=== PATIENT | male | born 1945 | race Caucasian/White ===

== ENCOUNTER 2018-02-09 06:30 | Emergency (ER) | payer MEDICARE ==
[~2018-02-09] VITALS: Ht 182.9 cm; Wt 104.3 kg
[~2018-02-09 06:30] MED LIST: ASPI325 PO; ASPI81EC PO; ATOR40TA PO; CARV3.125 PO; CARV6.25 PO; CLOP75 PO; COLCRYS0.6 MG PO; Coq-10100 MG PO; EFFIENT PO; FAMO20 PO; GLUC500 PO; Hair, Skin & N1 EACH PO; ISOMON30 PO; LEVSOD125 PO; LEVSOD75 PO; OMEG1CAP30 PO; Phenergan25 M1 PO; RAMI5 PO; SUCR1 PO; Viagra100 MG PO
[2018-02-09 08:31] LABS: BASOPHILS ABSOLUTE AUTO 0.03 K/mm3 (0.00-0.23); BASOPHILS PERCENT AUTO 0 % (0-2); EOSINOPHILS ABSOLUTE AUTO 0.33 K/mm3 (0.00-0.68); EOSINOPHILS PERCENT AUTO 5 % (0-6); Hematocrit 41.9 % (37.0-53.0); Hemoglobin 13.8 g/dL (13.5-17.5); IMMATURE GRAN ABSOLUTE AUTO 0.05 K/mm3 (0.00-0.10); IMMATURE GRAN PERCENT AUTO 1 % (0-1); LYMPHOCYTES ABSOLUTE AUTO 1.55 K/mm3 (0.84-5.20); LYMPHOCYTES PERCENT AUTO 21 % (21-46); MONOCYTES ABSOLUTE AUTO 0.69 K/mm3 (0.16-1.47); MONOCYTES PERCENT AUTO 9 % (4-13); Mean Corpuscular HGB 30.5 pg (26.0-34.0); Mean Corpuscular HGB Conc 32.9 g/dL (31.5-36.5); Mean Corpuscular Volume 93 fL (80-100); Mean Platelet Volume 11.4 fL (9.1-12.4); NEUTROPHILS ABSOLUTE AUTO 4.66 K/mm3 (1.96-9.15); NEUTROPHILS PERCENT AUTO 64 % (41-73); Platelet Count 181 K/mm3 (150-400); RDW Coefficient Variation 12.8 % (11.7-14.2); RDW Standard Deviation 43.5 fL (35.1-46.3); Red Blood Cell Count 4.53 M/mm3 (4.30-5.90); White Blood Cell Count 7.31 K/mm3 (4.00-11.30)
[2018-02-09 08:51] LABS: Alanine Aminotransfer (ALT/SGP 46 U/L (12-78); Albumin, Blood 3.2 g/dL (3.4-5.0); Albumin/Globulin Ratio 0.9 (0.8-1.8); Alk Phos 85 U/L (50-136); Anion Gap 7 mmol/L (6-16); Aspartate Aminotrans (AST/SGOT 29 U/L (12-37); Bilirubin, Total 0.3 mg/dL (0.1-1.0); Blood Urea Nitrogen 14 mg/dL (8-24); Bun/Creatinine Ratio 15.4 (12.0-20.0); CO2, Blood 25 mmol/L (21-32); Calcium, Blood 8.4 mg/dL (8.5-10.1); Chloride, Blood 108 mmol/L (98-108); Creatinine, Blood 0.91 mg/dL (0.60-1.20); Globulin, Blood 3.4 g/dL (2.2-4.0); Glomerular Filtration Rate >60 (60-); Glucose, Blood 142 mg/dL (70-99); Potassium, Blood 4.2 mmol/L (3.5-5.5); Sodium, Blood 140 mmol/L (136-145); Total Protein, Blood 6.6 g/dL (6.4-8.2)
== END 2018-02-09 09:33 | disposition home or self-care (01) ==
LOC: ER 06:30
PROVIDERS: Physician Assistant
DX: R07.81 Pleurodynia (principal); R05 Cough; I25.2 Old myocardial infarction; E03.9 Hypothyroidism, unspecified; I10 Essential (primary) hypertension; Z79.899 Other long term (current) drug therapy
CPT/HCPCS: 36415; 71046; 76705; 80053; 83690; 84484; 85025; 93005; 93010; 99284-25

== ENCOUNTER → 2021-05-27 | Outpatient (CLI) | payer MEDICARE ==
[2021-05-28 20:17] LABS: Adenovirus F 40/41 Not Detected (NOT DETECT); Astrovirus Not Detected (NOT DETECT); Campylobacter Sp Not Detected (NOT DETECT); Cryptosporidium Not Detected (NOT DETECT); Cyclospora Cayetanensis Not Detected (NOT DETECT); E. Coli O157 Not Detected (NOT DETECT); Entamoeba Histolytica Not Detected (NOT DETECT); Enteroaggregative E. coli-EAEC Not Detected (NOT DETECT); Enteropathogenic E. coli-EPEC Not Detected (NOT DETECT); Enterotoxigenic E. coli-ETEC Not Detected (NOT DETECT); Giardia Lamblia Not Detected (NOT DETECT); Norovirus GI/GII Not Detected (NOT DETECT); Plesiomonas Shigelloides Not Detected (NOT DETECT); Rotavirus A Not Detected (NOT DETECT); Salmonella Sp Not Detected (NOT DETECT); Sapovirus Not Detected (NOT DETECT); Shiga Toxin-prod E. coli-STEC Not Detected (NOT DETECT); Shigella/Enteroin E. coli-EIEC Not Detected (NOT DETECT); Vibrio Cholerae Not Detected (NOT DETECT); Vibrio Sp Not Detected (NOT DETECT); Yersinia Enterocolitica Not Detected (NOT DETECT)
== END | disposition home or self-care (01) ==
LOC: LAB SHORT 19:55 → LAB 19:55 → LAB FUT 05-27 14:00 → EDSTATUS 05-27 14:00
PROVIDERS: Internal Medicine
DX: R19.7 Diarrhea, unspecified (principal)
CPT/HCPCS: 87507

== ENCOUNTER → 2021-07-01 | Outpatient (CLI) | payer MEDICARE ==
[2021-07-03 08:24] LABS: Stool Occult Bld Immuno 1 Positive (NEGATIVE); Stool Occult Bld Immuno 2 Positive (NEGATIVE)
== END | disposition home or self-care (01) ==
LOC: LAB SHORT 11:25
PROVIDERS: Internal Medicine Gastroenterology
DX: Z12.11 Encounter for screening for malignant neoplasm of colon (principal)
CPT/HCPCS: 82274

== ENCOUNTER 2021-08-02 10:54 | Day surgery (SDC) | payer MEDICARE ==
[~2021-08-02] VITALS: Ht 185.4 cm; Wt 97.8 kg
== END 2021-08-02 13:30 | disposition home or self-care (01) ==
LOC: ORSCSDS 10:54
PROVIDERS: Internal Medicine Gastroenterology
PROC: 0DB68ZX Excision of Stomach, Via Natural or Artificial Opening Endoscopic, Diagnostic (ICD-10-PCS; principal; 2021-08-02 12:45)
PROC: 0DB48ZX Excision of Esophagogastric Junction, Via Natural or Artificial Opening Endoscopic, Diagnostic (ICD-10-PCS; principal; 2021-08-02 12:45)
PROC: 0DBE8ZX Excision of Large Intestine, Via Natural or Artificial Opening Endoscopic, Diagnostic (ICD-10-PCS; 2021-08-02 12:45)
DX: R19.5 Other fecal abnormalities (principal); K57.30 Diverticulosis of large intestine without perforation or abscess without bleeding; K29.70 Gastritis, unspecified, without bleeding; E11.9 Type 2 diabetes mellitus without complications; E66.9 Obesity, unspecified; Z68.30 Body mass index [BMI] 30.0-30.9, adult; Z79.82 Long term (current) use of aspirin; Z79.899 Other long term (current) drug therapy
CPT/HCPCS: 82947; 88305; 88341; 88342; J0330; J0461; J2405; J2704; J7120

== ENCOUNTER → 2021-10-05 | Outpatient (CLI) | payer MEDICARE ==
[2021-10-06 13:00] LABS: Stool Occult Bld Immuno 1 Positive (NEGATIVE)
== END | disposition home or self-care (01) ==
LOC: LAB 09:40 → LAB SHORT 09:40
PROVIDERS: Internal Medicine Gastroenterology
DX: R19.5 Other fecal abnormalities (principal)
CPT/HCPCS: 82274

== ENCOUNTER 2022-01-04 06:00 | Day surgery (SDC) | payer MEDICARE ==
[~2022-01-04 06:00] MED LIST changes: +CO Q10100 MG PO; +MULVITA PO; +NITR.4SL SL
[2022-01-04] MEDS ORDERED: RAMI5 PO (06:34)
== END 2022-01-04 10:18 | disposition home or self-care (01) ==
DX: K42.0 Umbilical hernia with obstruction, without gangrene (principal); I10 Essential (primary) hypertension; I25.2 Old myocardial infarction; R73.03 Prediabetes; K21.9 Gastro-esophageal reflux disease without esophagitis; Z79.899 Other long term (current) drug therapy; Z79.82 Long term (current) use of aspirin

== ENCOUNTER → 2022-06-28 | Outpatient (CLI) | payer MEDICARE | LOC: LAB 18:50 → LAB SHORT 18:50 | PROVIDERS: Internal Medicine Gastroenterology | DX: R19.4 Change in bowel habit (principal) | CPT/HCPCS: 82710 ==

== ENCOUNTER → 2022-07-01 | Outpatient (CLI) | payer MEDICARE ==
[2022-07-01 16:34] LABS: BASOPHILS ABSOLUTE AUTO 0.04 K/mm3 (0.00-0.23); BASOPHILS PERCENT AUTO 1 % (0-2); EOSINOPHILS ABSOLUTE AUTO 0.22 K/mm3 (0.00-0.68); EOSINOPHILS PERCENT AUTO 3 % (0-6); Hematocrit 39.6 % (37.0-53.0); Hemoglobin 13.2 g/dL (13.5-17.5); IMMATURE GRAN ABSOLUTE AUTO 0.03 K/mm3 (0.00-0.10); IMMATURE GRAN PERCENT AUTO 1 % (0-1); LYMPHOCYTES ABSOLUTE AUTO 1.63 K/mm3 (0.84-5.20); LYMPHOCYTES PERCENT AUTO 25 % (21-46); MONOCYTES ABSOLUTE AUTO 0.53 K/mm3 (0.16-1.47); MONOCYTES PERCENT AUTO 8 % (4-13); Mean Corpuscular HGB 30.8 pg (26.0-34.0); Mean Corpuscular HGB Conc 33.3 g/dL (31.5-36.5); Mean Corpuscular Volume 92 fL (80-100); Mean Platelet Volume 11.2 fL (9.1-12.4); NEUTROPHILS ABSOLUTE AUTO 4.21 K/mm3 (1.96-9.15); NEUTROPHILS PERCENT AUTO 63 % (41-73); Platelet Count 175 K/mm3 (150-400); RDW Coefficient Variation 13.6 % (11.7-14.2); RDW Standard Deviation 45.8 fL (35.1-46.3); Red Blood Cell Count 4.29 M/mm3 (4.30-5.90); White Blood Cell Count 6.66 K/mm3 (4.00-11.30)
[2022-07-01 16:41] LABS: Bun/Creatinine Ratio 13.6 (12.0-20.0); Calcium, Blood 8.7 mg/dL (8.5-10.1); Creatinine, Blood 1.03 mg/dL (0.60-1.20); Potassium, Blood 3.7 mmol/L (3.5-5.5)
== END | disposition home or self-care (01) ==
LOC: LAB SHORT 16:24 → LAB 16:24
PROVIDERS: Physician Assistant Surgical
DX: M79.89 Other specified soft tissue disorders (principal)
CPT/HCPCS: 80048; 83880; 85025

== ENCOUNTER 2024-03-12 08:28 | Day surgery (SDC) | payer MEDICARE ==
[~2024-03-12] VITALS: Ht 182.9 cm; Wt 100.9 kg
[2024-03-12] VITALS (13 sets, daily range): BP systolic 125–145; BP diastolic 56–76
[~2024-03-12 08:28] MED LIST changes: +ASPI81CH PO; -ASPI81EC PO; +CALCIUM 500+D1 EACH PO; +FURO20 PO; +SPIR50 PO; +VITAMIN B12500 MCG PO
[2024-03-12] MEDS ORDERED: Tranexamic Acid 1,000 MG in NS 100 ML IV SCH (08:40)
[2024-03-12] MEDS ORDERED: Ropivacaine 0.5% HCl/Pf 123.125 MG,EPINEPHrine HCL 0.25 MG,Ketorolac Tromethamine 15 MG... INFIL SCH (08:40)
[2024-03-12] MEDS ORDERED: OxyCODONE HCL 10 MG TABCR PO SCH (08:40)
[2024-03-12] MEDS ORDERED: Lactated Ringer's 1,000 ML IV SCH ×2 (08:40→10:50)
[2024-03-12] MEDS ORDERED: CeFAZolin Sodium 2,000 MG in NS 100 ML IV SCH ×2 (08:40→19:00)
[2024-03-12] MEDS ORDERED: Chlorhexidine Mouth Care 15 ML UDC MT SCH (08:40)
[2024-03-12] MEDS ORDERED: Acetaminophen 500 MG Tab PO SCH ×2 (08:40→16:00)
[2024-03-12] MEDS ORDERED: FentaNYL Citrate 50 MCG/ML 2 ML Injection ONE (09:41)
[2024-03-12] MEDS ORDERED: propofoL 20 ML IV ONE ×3 (10:00→12:28)
[2024-03-12] MEDS ORDERED: Dexamethasone Sod Phos 10 MG/ML 1ML VIAL ONE (10:01)
[2024-03-12] MEDS ORDERED: Ondansetron HCl 2 MG / ML 2ML Vial ONE (10:01)
[2024-03-12] MEDS ORDERED: Ketorolac Tromethamine 30mg Vial ONE (10:01)
[2024-03-12] MEDS ORDERED: Bupivacaine 0.5% HCl 5 MG/ML 30MLVIAL ONE (10:03)
[2024-03-12] MEDS ORDERED: DiphenhydrAMINE HCL 25 MG Cap PO PRN (10:45)
[2024-03-12] MEDS ORDERED: Metoclopramide HCl 5MG / ML 2ML Vial IV PRN (10:50)
[2024-03-12] MEDS ORDERED: HYDROmorphone HCl/Pf 1MG SYR IV PRN (10:50)
[2024-03-12] MEDS ORDERED: FLU VACC TS2024-25(6MOS UP)/PF 45 MCG/0.5 ML SYRINGE IM SCH (10:50)
[2024-03-12] MEDS ORDERED: Bisacodyl 10 MG Supp PR PRN (10:50)
[2024-03-12] MEDS ORDERED: Magnesium Hydroxide Conc 10 ML UDC PO PRN (10:50)
[2024-03-12] MEDS ORDERED: OxyCODONE HCL 5 MG TAB PO PRN ×2 (10:55)
[2024-03-12] MEDS ORDERED: Ondansetron HCl 2 MG / ML 2ML Vial IV PRN (10:55)
[2024-03-12] MEDS ORDERED: Promethazine HCl 25 MG Tab PO PRN (10:55)
--- NOTE | 2024-03-12 11:06 | NUR ---
Ambulatory in Day Surgery. History, Chart, Medications and Allergies reviewed before start of procedure. Lungs clear T/O to Auscultation. Patient confirms NPO status and agrees with scheduled surgery. Pre-Op teaching done. Pt verbalizes understanding. PT BELONGINGS PLACED UNDERNEATH GURNEY FOR SAFEKEEPING. PT GLASSES TAKEN TO PACU FOR SAFEKEEPING.
[2024-03-12] MEDS ORDERED: ePHEDrine Sulfate 50 MG/ML 1ML Injection ONE (11:27)
[2024-03-12] MEDS ORDERED: Ketorolac Tromethamine 15mg Vial IV SCH (12:00)
--- NOTE | 2024-03-12 14:00 | NUR ---
POST OP NOTE PT TO ROOM 215 FROM PACU. PT SETTLED BY CHARGE NURSE. IS ALERT, RESPONSIVE, FOLLOWING COMMANDS. DENIES PAIN AND NAUSEA. SOME NUMBNESS FROM SPINAL. PT TOLERATING PO FLUIDS. CHARY CARRILLO, POLAR PACK INTACT. CALL LIGHT IN REACH.
--- NOTE | 2024-03-12 16:22 | NUR ---
SHIFT SUMMARY PT IS PODO FOR L TKA W/ DR. WISEMAN. ALERT, RESPONSIVE, FOLLOWING COMMANDS. DRESSING TO L KNEE C/D/I, CAP REFILL 2 SECS, PT REPORTING FULL SENSATION RETURNED AFTER SPINAL. 1 ASST W/ FWW AND GB TO BATHROOM. PT HAS VOIDED POST OP. PAS, CHARY HOSE, POLAR ELISABETH IN PLACE. VSS. PT TOLERATING PO FLUIDS AND REG FOOD W/O NAUSEA. WAITING TO WORK W/ PT AND DC HOME. USING CALL LIGHT APPROPRIATELY.
--- NOTE | 2024-03-12 19:42 | NUR ---
DISCHARGE NOTE PT ALERT, RESPONSIVE, FOLLOWING COMMANDS. TOLERATING REG DIET, PO FLUIDS, VOIDING APPROPRIATELY. CAP REFILL IN L TOES 2 SECS, PT REPORTS FULL SENSATION TO BLE, DRESSING TO L KNEE C/D/I. SOME SWELLING TO L LEG, JULIANE HERNANDEZ NOTIFIED, CLARIFIED PT OK TO GO HOME. REPORTS L LEG IS ALWAYS SLIGHTLY SWOLLEN. NO REDNESS OR WARMTH/CRAMPING PRESENT. PT NOTIFIED TO CALL OFFICE/SEEK MEDICAL ATTENTION IF THIS CHANGES OR SWELLING INCREASES. PT MEDICATED FOR PAIN W/ GREAT RESULTS, IS REPORTING MILD TO NO PAIN AT TIME OF DISCHARGE. REVIEWED DC INSTRUCTIONS W/ PT, COPY GIVEN WELL DRESSING CHANGES. VSS. PT HAS MEDICATIONS FILLED ALREADY AT HOME. PT DC'D IN STABLE CONDITION VIA WC TO PRIVATE RIDE HOME W/ BELONGINGS.
[2024-03-12] MEDS ORDERED: Docusate Sodium 100 MG Cap PO SCH (21:00)
[2024-03-13] MEDS ORDERED: Levothyroxine Sodium 0.125 MG Tab PO SCH (06:00)
[2024-03-13] MEDS ORDERED: Lisinopril 10 MG Tab PO SCH (09:00)
[2024-03-13] MEDS ORDERED: Cyanocobalamin 500 MCG Tab PO SCH (09:00)
[2024-03-13] MEDS ORDERED: Spironolactone 50 MG Tab PO SCH (09:00)
[2024-03-13] MEDS ORDERED: Atorvastatin 40 MG Tab PO SCH (09:00)
[2024-03-13] MEDS ORDERED: Famotidine 20 MG Tab PO SCH (09:00)
[2024-03-13] MEDS ORDERED: Aspirin 81 MG Chew PO SCH (09:00)
[2024-03-13] MEDS ORDERED: Furosemide 20 MG Tab PO SCH (09:00)
[2024-03-13] MEDS ORDERED: Calcium 500 MG/Vit D 200 Units Tab PO SCH (09:00)
== END 2024-03-12 19:31 | disposition home or self-care (01) ==
LOC: SURS 08:28 → ORSCMMR 08:28 → ORD 12:30 → ORSCMMR 12:30 → SURS 13:57 → ORSCMMR 19:31
PROVIDERS: Orthopaedic Surgery
PROC: 0SRD0JA Replacement of Left Knee Joint with Synthetic Substitute, Uncemented, Open Approach (ICD-10-PCS; principal; 2024-03-12 10:00)
DX: M17.12 Unilateral primary osteoarthritis, left knee (principal); I10 Essential (primary) hypertension; E03.9 Hypothyroidism, unspecified; K21.9 Gastro-esophageal reflux disease without esophagitis; I25.2 Old myocardial infarction; Z79.899 Other long term (current) drug therapy; Z79.82 Long term (current) use of aspirin
CPT/HCPCS: 73560-LT; 97110; 97116; 97161; 97530; A9270; C1713; C1776; J0171; J0690; J0735; J1100; J1885; J2405; J2704; J2795; J3010; J7120

== ENCOUNTER 2024-04-23 10:46 | Day surgery (SDC) | payer MEDICARE ==
[~2024-04-23] VITALS: Ht 182.9 cm; Wt 91.0 kg
[~2024-04-23 10:46] MED LIST changes: -LEVSOD125 PO; +LEVSOD150 PO; +Percocet 5-3251 EACH PO
[2024-04-23] MEDS ORDERED: Lactated Ringer's 1,000 ML IV SCH (11:00)
--- NOTE | 2024-04-23 12:12 | NUR ---
Ambulatory in Day Surgery History, Chart, Medications and Allergies reviewed before start of procedure. Pre-Op teaching done. Pt verbalizes understanding. Patient States Post-Procedure ride home has been arranged.
[2024-04-23] MEDS ORDERED: propofoL 50 ML IV ONE (13:26)
[2024-04-23 13:40] VITALS: BP 130/70
[2024-04-23 13:45] VITALS: BP 128/84
[2024-04-23 13:50] VITALS: BP 124/84
[2024-04-23 13:55] VITALS: BP 129/82
[2024-04-23 14:00] VITALS: BP 129/78
[2024-04-23] MEDS ORDERED: OxyCODONE 5 mg/Acetamin 325 mg TABLET PO PRN (14:10)
--- NOTE | 2024-04-23 14:20 | NUR ---
PT SITTING UP IN CART W/O COMPLAINT. PT STATES PAIN TO L KNEE IS BOTHERSOME & REQUESTS PAIN PILL, SEE MAR. PT DENIES NAUSEA. VSS, ON RA. PT TOLERATING CRANBERRY JUICE AND SALTINE CRACKERS W/O COMPLAINT. PT'S AT BEDSIDE. 2-VIEW XRAY TAKEN AT BEDSIDE ORDERED. NO VISIBLE SIGNS OF DISTRESS NOTED.
[2024-04-23 14:30] VITALS: BP 141/79
--- NOTE | 2024-04-23 14:57 | NUR ---
D/C INSTRUCTIONS GIVEN TO PT & PT'S , UNDERSTANDING VERBALIZED. AFTER MOVING AROUND, PT STATES PAIN IS WORSE, BUT STILL TOLERABLE. PT STATES HE HAS PAIN MEDICINE AT HOME THAT HE WILL TAKE. PT TOLERATED JUICE & CRACKERS W/O COMPLAINT. PT DRESSED W/ HELP FROM . PT HAS ALL BELONGINGS W/ HIM, INCLUDING ICE PACK. PT WHEELED TO PRIVATE VEHICLE, STEADY GAIT NOTED UPON AMBULATION FROM WC TO VEHICLE.
== END 2024-04-23 23:14 | disposition home or self-care (01) ==
LOC: ORD 10:46 → ORSCMMR 10:46 → ORD 23:14
PROVIDERS: Orthopaedic Surgery
PROC: 0SSDXZZ Reposition Left Knee Joint, External Approach (ICD-10-PCS; principal; 2024-04-23 07:30)
DX: M24.662 Ankylosis, left knee (principal); Z96.652 Presence of left artificial knee joint; I10 Essential (primary) hypertension; G47.33 Obstructive sleep apnea (adult) (pediatric); Z79.899 Other long term (current) drug therapy; Z79.82 Long term (current) use of aspirin
CPT/HCPCS: 73560-LT; A9270; J2704; J7120

== ENCOUNTER 2025-01-01 09:05 | Day surgery (SDC) | payer MEDICARE ==
[~2025-01-01] VITALS: Ht 182.9 cm; Wt 98.5 kg
[~2025-01-01 09:05] MED LIST changes: +FentaNYL Citrate 50 MCG/ML 2 ML Injection ONE; +Lidocaine 2%-Epineph 1:100000 20 ML MDV ONE; +Midazolam HCL 1 MG/ML 5MLVIAL ONE; +Midazolam HCl 1MG / ML 2ML Vial ONE
[2025-01-01] MEDS ORDERED: CeFAZolin Sodium 2,000 MG VIAL ONE (09:26)
[2025-01-01] MEDS ORDERED: EPLERENONE (10:07)
[2025-01-01] MEDS ORDERED: AREDS (10:08)
[2025-01-01] MEDS ORDERED: TURMERIC500 M2 (10:09)
[2025-01-01] MEDS ORDERED: Dexamethasone Sod Phos 10 MG/ML 1ML VIAL ONE (10:59)
[2025-01-01] MEDS ORDERED: Ondansetron HCl 2 MG / ML 2ML Vial ONE (10:59)
[2025-01-01] MEDS ORDERED: Ketorolac Tromethamine 30mg Vial ONE (11:41)
[2025-01-01 13:30] VITALS: BP 150/79
--- NOTE | 2025-01-01 13:32 | NUR ---
01/01/25 7741 Denise Dorsey RN ASSISTED PT TO RECLINER. VSS. PT DENIES PAIN/NAUSEA/DIZZINESS AT THIS TIME.
== END 2025-01-01 13:25 | disposition home or self-care (01) ==
LOC: ORSCSDS 09:05
PROVIDERS: Orthopaedic Surgery
PROC: 0SBD4ZZ Excision of Left Knee Joint, Percutaneous Endoscopic Approach (ICD-10-PCS; principal; 2025-01-01 10:45)
PROC: 0SND4ZZ Release Left Knee Joint, Percutaneous Endoscopic Approach (ICD-10-PCS; principal; 2025-01-01 10:45)
DX: T84.82XA Fibrosis due to internal orthopedic prosthetic devices, implants and grafts, initial encounter (principal); M24.662 Ankylosis, left knee; Z96.652 Presence of left artificial knee joint; I25.10 Atherosclerotic heart disease of native coronary artery without angina pectoris; K21.9 Gastro-esophageal reflux disease without esophagitis; I10 Essential (primary) hypertension; E78.5 Hyperlipidemia, unspecified; G47.33 Obstructive sleep apnea (adult) (pediatric); E03.9 Hypothyroidism, unspecified; E11.9 Type 2 diabetes mellitus without complications; I25.2 Old myocardial infarction; Z79.899 Other long term (current) drug therapy
CPT/HCPCS: 82947; 87070; 87075; 87205; J0166; J0690; J1100; J1885; J2250; J2405; J2704; J3010; J7120